=== PATIENT | female | born 1940 | race Caucasian/White ===

== ENCOUNTER 2020-10-18 13:32 | Emergency (ER) | payer OTHER ==
[~2020-10-18] VITALS: Ht 160 cm; Wt 90.7 kg
[~2020-10-18 13:32] MED LIST: CARV25 PO; CHOL10002; CYCL10; DOXA4 PO; HYDCHL50 PO; HYDRA50 PO; LEVSOD112 PO; OMEP10ER; POTCHL10ER PO; TRAN4 PO; VENL75ER PO; VERA180ER PO
[2020-10-18] MEDS ORDERED: CYCL10 PO (16:57)
[2020-10-18] MEDS ORDERED: HYDR1TAB94 PO (16:57)
[2020-10-18] MEDS ORDERED: LIDO700A20 TOP (16:57)
== END 2020-10-18 17:35 | disposition home or self-care (01) ==
LOC: ER 13:32
DX: M51.16 Intervertebral disc disorders with radiculopathy, lumbar region (principal); Z79.899 Other long term (current) drug therapy
CPT/HCPCS: 72131; 99283-25; A9270-GY

== ENCOUNTER → 2023-08-25 | Outpatient (CLI) | payer OTHER ==
[~2023-08-25] MED LIST changes: +AMLO5 PO; +CYCL10 PO; +ELIQUIS5 M2 PO; +FURO20 PO; +HYDR1TAB94 PO; +KLOR-CON 1010 ME1 PO; +LIDO700A20 TOP; +NITR.4SL SL; +Prinivil10 MG PO
== END | disposition home or self-care (01) ==
LOC: LAB SHORT 15:15 → LAB 15:15
DX: S81.802A Unspecified open wound, left lower leg, initial encounter (principal)
CPT/HCPCS: 87070; 87075; 87077; 87147; 87186; 87205